=== PATIENT | female | born 1940 | race Caucasian/White ===

== ENCOUNTER 2022-06-25 11:07 | Emergency (ER) | payer MEDICARE, SELFPAY ==
--- NOTE | ~2022-06-25 | XR_ITS ---
EXAMINATION: XR hip BI 2V w AP pelvis DATE: 06/25/2022 12:05 INDICATION: Pain after fall TECHNIQUE: AP view of the pelvis and two views of each hip were obtained. COMPARISON: None. FINDINGS: Bone alignment is normal. There is no fracture. Phleboliths are noted in the pelvis. There is mild osteoarthritis of the hips. Mild osteitis pubis is noted. IMPRESSION: 1. No acute osseous abnormality. Reviewed, dictated and finalized at location A.
--- NOTE | ~2022-06-25 | XR_ITS ---
EXAMINATION: XR foot LT min 3V DATE: 06/25/2022 12:04 INDICATION: Left foot pain, initial encounter TECHNIQUE: Dorsoplantar, lateral, and 2 oblique views of the left foot were obtained. COMPARISON: None. FINDINGS: There is an acute, traumatic, transverse fracture in the distal neck of the second metatars al with 50 degrees of valgus angulation. There is an acute, traumatic, transverse fracture in the dis calista neck of the third metatarsal with 30 degrees of valgus angulation. Soft tissue swelling surrounds the fractures. No additional fracture is identified. 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 IMPRESSION: 1. Acute distal neck fractures of the second and third metatarsals with valgus angulation. Reviewed, dictated and finalized at location A.
--- NOTE | ~2022-06-25 | XR_ITS ---
EXAMINATION: XR ankle LT min 3V DATE: 06/25/2022 12:04 INDICATION: Left ankle pain TECHNIQUE: Anteroposterior, lateral, mortise, and additional oblique view of the ankle were obtained. COMPARISON: None. FINDINGS: There is anterior soft tissue swelling of ankle. Small heterotopic ossifications are seen a t the anterolateral aspect of the ankle, likely near the distal fibula on the oblique view. Ankle ali gnment is normal. Fractures of the second and third metacarpal necks are noted and described on radio graphs. IMPRESSION: 1. Probable avulsion injury at the lateral aspect of the lateral malleolus. Reviewed, dictated and finalized at location A.
[2022-06-25 11:20] VITALS: BP 144/72; PULSE 74; RESP 16; TEMP 36; O2SAT 99
--- NOTE | 2022-06-25 11:41 | ED.GENADULT ---
HPI - General Adult General Chief complaint: Extremity Injury, Lower Stated complaint: Fall Injury/Left Ankle Source: patient and family Mode of arrival: ambulatory Limitations: dementia History of Present Illness HPI narrative: Patient brought in by her for evaluation after a fall at home just prior to arrival. sees patient tripped when getting up to walk. When he turned around he saw her seated on the floor. She did not hit her head. No loss of consciousness. Not on blood thinners. No vomiting since episode. She now reports left foot pain and bruising. No descriptive quality or numerical rating to the pain. Baseline status is ambulatory without assistive device. Upon my initial evaluation she is seated in a wheelchair. She and her indicate that she fell several weeks ago and injured her elbow and hip. She did not undergo any medical evaluation at that time. No additional complaints or concerns. Related Data Home Medications Medication Instructions Recorded Confirmed albuterol sulfate 90 mcg/actuation 2 puff inhalation QID PRN Dyspnea 06/25/22 06/25/22 aerosol inhaler (Ventolin HFA) atorvastatin 20 mg tablet 20 mg PO DAILY 06/25/22 06/25/22 [id number] 250 1 tablet PO DAILY 06/25/22 06/25/22 mg-40 mg-5 mg-125 unit tablet cholecalciferol (vitamin D3) 25 25 mcg PO DAILY 06/25/22 06/25/22 mcg (1,000 unit) tablet (Vitamin D3) donepezil 10 mg tablet 10 mg PO HS 06/25/22 06/25/22 memantine 10 mg tablet 10 mg PO BID 06/25/22 06/25/22 metoprolol tartrate 25 mg tablet 25 mg PO DAILY 06/25/22 06/25/22 umeclidinium 62.5 mcg-vilanterol 1 inh inhalation DAILY 06/25/22 06/25/22 25 mcg/actuation powdr for inhalation (Anoro Ellipta) Allergies Allergy/AdvReac Type Severity Reaction Status Date / Time No Known Allergies Allergy Verified 06/25/22 11:31 Review of Systems Review of Systems: CONSTITUTIONAL: Denies fever, chills, or sweats. EYES: Denies visual changes, redness, or discharge. ENT: Denies rhinorrhea, congestion, sore throat, or otalgia. CARDIOVASCULAR: Denies chest pain, palpitations, or edema. RESPIRATORY: Denies cough or dyspnea. GASTROINTESTINAL: Denies abdominal pain, nausea, vomiting, or diarrhea. GENITOURINARY: Denies dysuria or hematuria. SKIN: Reports bruising to the left foot. Denies rash or itching. MUSCULOSKELETAL: Reports left foot pain. NEUROLOGIC: Denies headache, numbness, dizziness, or weakness. PSYCHIATRIC: Denies anxiety or depression. [facility] Past Medical History Medical History (Updated 06/25/22 @ 12:46 by MARIA R LlanesP, ) Alzheimers disease Ankle fracture COPD (chronic obstructive pulmonary disease) Foot fracture Hyperlipidemia Hypertension Surgical History Surgical History History of hysterectomy Family History Family History Mother Family history non-contributory Social History Social History Smoking status: Former smoker Substance use: never Living arrangements: with family Gender identity (if verbalized by the patient): Female Sexual Orientation (if Verbalized by the Patient): Straight or Heterosexual Spiritual care concerns: No Exam Narrative: GENERAL: Well-appearing, well-nourished, and in no acute distress. HEAD: Normocephalic, atraumatic. EYES: PERRLA and EOMI. ENT: Nares clear, no rhinorrhea or epistaxis. Mucous membranes moist. Oropharynx without tonsillar hypertrophy exudate or other lesions. Bilateral TMs pearly olivares nonbulging NECK: Supple. No adenopathy or masses. No carotid bruits or JVD CHEST: Clear to auscultation. No respiratory distress. No wheezes rales or rhonchi HEART: Regular rate and rhythm. No murmur heard. Normal peripheral pulses. ABDOMEN: Soft, nontender, nondistended, normal active rajinder
== END 2022-06-25 12:48 | disposition home or self-care (01) ==
PROVIDERS: Emergency Provider Nurse Practitioner; PCP Internal Medicine
DX: S82.892A Other fracture of left lower leg, initial encounter for closed fracture (principal); W01.0XXA Fall on same level from slipping, tripping and stumbling without subsequent striking against object, initial encounter; S92.322A Displaced fracture of second metatarsal bone, left foot, initial encounter for closed fracture; S92.332A Displaced fracture of third metatarsal bone, left foot, initial encounter for closed fracture; G30.9 Alzheimer's disease, unspecified; F02.80 Dementia in other diseases classified elsewhere, unspecified severity, without behavioral disturbance, psychotic disturbance, mood disturbance, and anxiety; J44.9 Chronic obstructive pulmonary disease, unspecified; E78.5 Hyperlipidemia, unspecified; I10 Essential (primary) hypertension
CPT/HCPCS: 73521; 73610; 73630; 99214; G0463

== ENCOUNTER 2022-12-06 10:03 | Emergency (ER) | payer MEDICARE, SELFPAY ==
[2022-12-06 10:07] VITALS: BP 141/90; PULSE 94; RESP 22; TEMP 37.1; O2SAT 97
--- NOTE | 2022-12-06 10:12 | ED.FEMALEGU ---
HPI - Female Genitourinary General Chief complaint: Urogenital-Female Stated complaint: upper back pain/uti Time Seen by Provider: 12/06/22 10:15 Source: patient, RN notes reviewed and old records reviewed Mode of arrival: ambulatory Limitations: no limitations History of Present Illness HPI Narrative: 82-year-old female presents to the [facility] with with complaints of urinary frequency, right back pain upper, tenderness along the right lateral vertebrae, scapular area as well as ribs. Tenderness to the right orbit. Has been reports that she fell approximately 430 this morning. Denies any loss of consciousness. Is not on blood thinners. Patient is having shallow breathing. Has a history of dementia, high cholesterol, irregular heartbeats MD elicited complaint: UTI and back pain Onset (ago): hour(s) (0430 this am) Related Data Home Medications Medication Instructions Recorded Confirmed albuterol sulfate 90 mcg/actuation 2 puff inhalation QID PRN Dyspnea 06/25/22 08/11/22 aerosol inhaler (Ventolin HFA) atorvastatin 20 mg tablet 20 mg PO DAILY 06/25/22 08/11/22 [id number] 250 1 tablet PO DAILY 06/25/22 08/11/22 mg-40 mg-5 mg-125 unit tablet cholecalciferol (vitamin D3) 25 25 mcg PO DAILY 06/25/22 08/11/22 mcg (1,000 unit) tablet (Vitamin D3) donepezil 10 mg tablet 10 mg PO HS 06/25/22 08/11/22 memantine 10 mg tablet 10 mg PO BID 06/25/22 08/11/22 metoprolol tartrate 25 mg tablet 25 mg PO DAILY 06/25/22 08/11/22 umeclidinium 62.5 mcg-vilanterol 1 inh inhalation DAILY 06/25/22 08/11/22 25 mcg/actuation powdr for inhalation (Anoro Ellipta) Allergies Allergy/AdvReac Type Severity Reaction Status Date / Time No Known Allergies Allergy Verified 12/06/22 10:11 Review of Systems Review of Systems: All systems reviewed & are unremarkable except as noted in HPI and below Constitutional: Constitutional: Reports no additional constitutional complaints Eyes: Eyes: Reports no additional eye complaints ENT: Reports as per HPI Cardiovascular: Cardiovascular: Reports no additional cardiovascular complaints, Denies chest pain and Denies dyspnea Respiratory: Respiratory: Reports as per HPI, Denies chest congestion, Denies cough and Reports dyspnea Gastrointestinal: Gastrointestinal: Reports no additional gastrointestinal complaints, Denies abdominal pain, Denies nausea and Denies vomiting Genitourinary: Genitourinary: Reports as per HPI and Reports dysuria Musculoskeletal: Musculoskeletal: Reports as per HPI, Reports back pain, Denies arthralgias and Denies joint swelling Integumentary/Breasts: Skin/Breast: Reports system reviewed and no additional complaints, except as docu Neurologic: Reports system reviewed and no additional complaints, except as documented Psychiatric: Psychiatric: Reports no additional psychiatric complaints Allergic/Immunologic: Allergic/Immunologic: Reports no additional allergic/immunologic complaints PMFSH Past Medical History Medical History Abnormality of heart beat Alzheimers disease Ankle fracture COPD (chronic obstructive pulmonary disease) Foot fracture Hyperlipidemia Hypertension Memory loss Wears glasses Surgical History Surgical History History of hysterectomy Family History Family History Mother Family history non-contributory Other Diabetes mellitus High cholesterol Hypertension Social History Social History Smoking packs per day: 1 Smoking cigarettes per day: 20.0 Years smoked: 50 Smoking pack-years: 50.00 Smoking status: Former smoker Smoking end date: 11/13/09 Substance use: never Living arrangements: with family Gender identity (if verbalized by the patient): Female Sexual Shahriar
--- NOTE | 2022-12-06 10:43 | ECG_ITS ---
Measurements Intervals [place] Rate: 77 P: 85 [place]: 154 QRS: -24 QRSD: 93 T: 53 QT: 372 QTc: 422 Interpretive Statements SINUS RHYTHM FREQUENT VENTRICULAR PREMATURE COMPLEXES POSSIBLE LEFT ATRIAL ENLARGEMENT INCOMPLETE RIGHT BUNDLE BRANCH BLOCK BASELINE ARTIFACT- V1-V3 ABNORMAL ECG NO PRIOR ECG FOR COMPARISON Electronically Signed On 12-06-2022 14:08:14 FOOD SAMPLER by Mani Charles D.O.
== END 2022-12-06 10:52 | disposition short-term general hospital (02) ==
LOC: EXPBETH 10:07
PROVIDERS: Emergency Provider Nurse Practitioner; PCP Internal Medicine
DX: N39.0 Urinary tract infection, site not specified (principal); M54.6 Pain in thoracic spine; H57.11 Ocular pain, right eye; I45.10 Unspecified right bundle-branch block; Z87.891 Personal history of nicotine dependence; G30.9 Alzheimer's disease, unspecified; F02.80 Dementia in other diseases classified elsewhere, unspecified severity, without behavioral disturbance, psychotic disturbance, mood disturbance, and anxiety; E78.00 Pure hypercholesterolemia, unspecified; J44.9 Chronic obstructive pulmonary disease, unspecified; E78.5 Hyperlipidemia, unspecified; W19.XXXA Unspecified fall, initial encounter
CPT/HCPCS: 81003; 93005; 99213; G0463